=== PATIENT | male | born 1980 | race African-American/Black ===

== ENCOUNTER 2018-09-30 10:58 | Emergency (ER) | payer SELFPAY ==
[~2018-09-30] VITALS: Ht 175.3 cm; Wt 112.0 kg
[2018-09-30 11:02] VITALS: BP 126/73
== END 2018-09-30 12:36 | disposition home or self-care (01) ==
LOC: ER 11:06
DX: K64.9 Unspecified hemorrhoids (principal); J45.909 Unspecified asthma, uncomplicated; F17.200 Nicotine dependence, unspecified, uncomplicated
CPT/HCPCS: 99282

== ENCOUNTER 2019-12-14 19:26 | Emergency (ER) | payer SELFPAY ==
[~2019-12-14] VITALS: Ht 185.4 cm; Wt 113.6 kg
[2019-12-14] MEDS ORDERED: IPRATROPIUM BROMIDE (0.02%) 0.5MG/2.5ML NEB HHN STA ×2 (19:58→22:29)
[2019-12-14] MEDS ORDERED: PREDNISONE 20MG TABLET PO STA (19:58)
[2019-12-14] MEDS ORDERED: ALBUTEROL (0.083%) 2.5MG/3ML NEB HHN STA ×2 (19:58→22:29)
[2019-12-14 23:15] VITALS: BP 142/82
== END 2019-12-14 23:10 | disposition home or self-care (01) ==
LOC: ER 19:26
DX: J45.901 Unspecified asthma with (acute) exacerbation (principal); F17.210 Nicotine dependence, cigarettes, uncomplicated
CPT/HCPCS: 71045; 93005; 94644; 99285; J7512; Z7610

== ENCOUNTER 2021-04-12 20:19 | Emergency (ER) | payer MEDICAID ==
[~2021-04-12] VITALS: Ht 185.4 cm; Wt 125.0 kg
[2021-04-12] MEDS ORDERED: ONDA4TAB5 MT (21:32)
[2021-04-12 21:45] VITALS: BP 144/79
[2021-04-12] MEDS ORDERED: ONDANSETRON 4MG ODT PO ONE (21:45)
[2021-04-12] MEDS ORDERED: KETOROLAC 30MG/ML VIAL IM ONE (21:45)
== END 2021-04-12 21:56 | disposition home or self-care (01) ==
LOC: ER 20:19
DX: U07.1 COVID-19 (principal); J45.909 Unspecified asthma, uncomplicated; I49.8 Other specified cardiac arrhythmias; Z98.890 Other specified postprocedural states
CPT/HCPCS: 71045; 93005; 96372; 99283; J1885; Q0162

== ENCOUNTER 2022-05-31 11:47 | Emergency (ER) | payer MEDICAID ==
[~2022-05-31] VITALS: Ht 185.4 cm; Wt 114.0 kg
[~2022-05-31 11:47] MED LIST: ONDA4TAB5 MT
[2022-05-31 11:55] VITALS: BP 155/94
[2022-05-31] MEDS ORDERED: ACETAMINOPHEN 325MG TABLET PO ONE (12:30)
[2022-05-31] MEDS ORDERED: ALBUTEROL (0.083%) 2.5MG/3ML NEB HHN ONE ×2 (12:30→14:45)
[2022-05-31] MEDS ORDERED: PREDNISONE 20MG TABLET PO ONE (12:30)
[2022-05-31] MEDS ORDERED: PREDNISONE 20MG TABLET PO NR (14:30)
[2022-05-31] MEDS ORDERED: ACETAMINOPHEN 325MG TABLET PO NR (14:30)
[2022-05-31] MEDS ORDERED: ALBUTEROL (0.083%) 2.5MG/3ML NEB HHN NR (14:30)
[2022-05-31] MEDS ORDERED: P50 MT (15:34)
[2022-05-31] MEDS ORDERED: IBUP-2029 MT (15:34)
[2022-05-31] MEDS ORDERED: AMOX-494 MT (15:34)
[2022-05-31] MEDS ORDERED: ALBU18HF2 IH (15:35)
== END 2022-05-31 15:58 | disposition home or self-care (01) ==
LOC: ER 13:24
DX: B34.9 Viral infection, unspecified (principal); H66.91 Otitis media, unspecified, right ear; R06.02 Shortness of breath
CPT/HCPCS: 71045; 94640; 99284; J7512; Z7610